=== PATIENT | female | born 1960 | race Caucasian/White ===

== ENCOUNTER → 2017-12-26 | Outpatient (CLI) | payer BC, OTHER ==
--- NOTE | 2017-12-26 13:13 | DIAGNOSTIC IMAGING REPORT ---
L KNEE 4 OR MORE HISTORY: 57 years-old Female LEFT KNEE PAIN chronic left knee pain without reported trauma COMPARISON: Knee radiographs 03/17/2014 TECHNIQUE: Standing AP view of the bilateral knees with sunrise, AP axial and crosstable lateral views of the left knee FINDINGS: Mild lateral and mild to moderate medial compartment osteoarthritis of the right knee. There is mild to moderate lateral and moderate patellofemoral compartment with moderate medial compartment osteoarthritis about the left knee. Prominent spurring is seen of the tibial spines. No acute fracture or subluxation identified. Trace knee joint effusion is noted without opaque foreign body. Degenerative changes have progressed from 03/17/2014. IMPRESSION: 1. No acute fracture or dislocation. 2. Progressively worsened tricompartmental degenerative changes of the bilateral knees. The above report was generated using voice recognition software. It may contain grammatical, syntax or spelling errors. Electronically signed by: Chetan Castro M.D. 12/26/2017 1:12 PM Dictated Date/Time: 12/26/2017 1:09 PM
== END | disposition home or self-care (01) ==
LOC: C.RDSM 17:25
PROVIDERS: ATTEND Physician Assistant
DX: M25.562 Pain in left knee (principal)

== ENCOUNTER → 2018-02-23 | Outpatient (CLI) | payer OTHER, BC ==
[~2018-02-23] MED LIST: ACET-1256 PO; ALBUAER INH; ASPI81TA28 PO; CHN/1 PO; DTR/5 PO; GABA-112 PO; GABA-113 PO; IBUP-1451 PO; METF-384 PO; METH-307 PO; METO25TA3 PO; PRLSR20 PO; SYMIN160 INH
--- NOTE | 2018-02-23 15:14 | DIAGNOSTIC IMAGING REPORT ---
MRI THE RIGHT SHOULDER NO CONTRAST CLINICAL HISTORY: Persistent right shoulder pain COMPARISON STUDY: No previous studies for comparison. FINDINGS: Imaging was performed in the sagittal, coronal, and axial planes. There are no areas of marrow edema to indicate occult fracture or bone bruise. The bicipital tendon appears intact. There is no subluxation. There are subchondral cysts within the humeral head measuring 1 cm. There are mild degenerative changes within the chromic clavicular joint. There is extensive supraspinatus tendinopathy with several partial-thickness intrasubstance tears. There is slight blunting of the anterior superior glenoid labrum, finding which is likely chronic IMPRESSION: 1. Extensive supraspinatus tendinopathy with several partial-thickness and intrasubstance tears. Electronically signed by: Errol Lovell M.D. 02/23/2018 3:12 PM Dictated Date/Time: 02/23/2018 3:07 PM
== END | disposition home or self-care (01) ==
LOC: C.MRI 14:01
PROVIDERS: ATTEND Family Medicine
DX: M25.511 Pain in right shoulder (principal); M75.91 Shoulder lesion, unspecified, right shoulder

== ENCOUNTER 2018-03-03 06:23 | Inpatient (IN) | payer BC, OTHER ==
[2018-02-18 10:48] VITALS: Ht 170.2 cm; Wt 127.7 kg
--- NOTE | 2018-02-18 11:49 | PAT Medication Instructions ---
Service Date Feb 18, 2018. Current Home Medication List Acetaminophen (Tylenol), 500 MG PO TID Albuterol Sulfate (Proventil Hfa), 1 DOSE INH UD PRN for PRN Aspirin (Aspirin Ec), 81 MG PO QAM Budesonide/Formoterol Fumarate (Symbicort 160/4.5 Inhaler ), 2 PUFFS INH BID Gabapentin (Neurontin), 100 MG PO BID Gabapentin (Neurontin), 600 MG PO HS Ibuprofen Tab (Motrin), 800 MG PO TID Metformin Hcl (Glucophage), 1,000 MG PO BID Methocarbamol (Robaxin), 750 MG PO TID Metoprolol Succ (Toprol Xl) (Toprol-Xl), 12.5 MG PO QAM Omeprazole (Prilosec), 20 MG PO UD Oxybutynin Chloride (Ditropan), 10 MG PO BID Sulfamethoxazole-Trimethoprim (Bactrim Ds 800MG/160MG), Unknown Dose PO BID Varenicline (Chantix), 1 DOSE PO DIRECTED Medication Instructions For Your Scheduled Surgery -Follow your surgeon's instructions for: Ibuprofen Tab (Motrin), 800 MG PO TID -Continue as directed until completed: Sulfamethoxazole-Trimethoprim (Bactrim Ds 800MG/160MG), Unknown Dose PO BID - Hold the following medications the morning of surgery: Metformin Hcl (Glucophage), 1,000 MG PO BID Methocarbamol (Robaxin), 750 MG PO TID Oxybutynin Chloride (Ditropan), 10 MG PO BID Varenicline (Chantix), 1 DOSE PO DIRECTED - Take the following medications the morning of surgery with a sip of water: Acetaminophen (Tylenol), 500 MG PO TID (if needed, can be taken up to four hours before surgery) Albuterol Sulfate (Proventil Hfa), 1 DOSE INH UD PRN for PRN (if needed, and bring it with you to the hospital) Aspirin (Aspirin Ec), 81 MG PO QAM Budesonide/Formoterol Fumarate (Symbicort 160/4.5 Inhaler ), 2 PUFFS INH BID Gabapentin (Neurontin), 100 MG PO BID Metoprolol Succ (Toprol Xl) (Toprol-Xl), 12.5 MG PO QAM Omeprazole (Prilosec), 20 MG PO UD - Take the following medications as scheduled the night before surgery: Acetaminophen (Tylenol), 500 MG PO TID Gabapentin (Neurontin), 600 MG PO HS Omeprazole (Prilosec), 20 MG PO UD Oxybutynin Chloride (Ditropan), 10 MG PO BID Varenicline (Chantix), 1 DOSE PO DIRECTED If you have any questions please call us at [phone] or [phone] or [phone]
--- NOTE | 2018-02-18 12:22 | DIAGNOSTIC IMAGING REPORT ---
TWO VIEW CHEST CLINICAL HISTORY: Preoperative examination. FINDINGS: PA and lateral chest radiographs are obtained. No prior studies are available for comparison at the time of dictation. The cardiomediastinal silhouette is unremarkable. There is elevation of left hemidiaphragm with associated left basilar atelectasis. The lungs and pleural spaces are otherwise clear. There is no pneumothorax. The skeletal structures are osteopenic. The bony thorax appears intact. IMPRESSION: No active disease in the chest. Electronically signed by: Clay Meneses M.D. 02/18/2018 12:21 PM Dictated Date/Time: 02/18/2018 12:20 PM
[2018-02-18 12:28] LABS: BASO % 0.6 %; BASO ABS # 0.05 K/uL (0-0.2); EOS % 4.7 %; EOS ABS # 0.43 K/uL (0-0.5); HEMOGLOBIN 14.5 g/dL (12.0-16.0); IG# 0.04 K/uL (0.00-0.02); LYMPH % 16.5 %; MEAN CELL VOLUME 92.5 fL (80-100); MEAN CORPUSCULAR HEMOGLOBIN 31.2 pg (25-34); MEAN CORPUSCULAR HGB CONC 33.7 g/dl (32-36); MEAN PLATELET VOLUME 9.6 fL (7.4-10.4); MONO ABS # 0.73 K/uL (0.11-0.59); NEUT % 69.8 %; NEUT ABS # 6.32 K/uL (1.4-6.5); PLATELET COUNT 318 K/uL (130-400); RED CELL DISTRIBUTION WIDTH CV 12.9 % (11.5-14.5); RED CELL DISTRIBUTION WIDTH SD 43.3 fL (36.4-46.3); WHITE BLOOD COUNT 9.07 K/uL (4.8-10.8)
[2018-02-18 12:36] LABS: ALBUMIN 3.5 gm/dl (3.4-5.0); CALCIUM 9.2 mg/dl (8.5-10.1); CREATININE 0.86 mg/dl (0.60-1.20); INR 0.9 (0.9-1.1); POTASSIUM 4.7 mmol/L (3.5-5.1)
[2018-02-18 12:39] LABS: TOTAL PROTEIN 6.8 gm/dl (6.4-8.2)
--- NOTE | 2018-02-18 15:06 | History and Physical ---
History & Physical Date of Service Feb 18, 2018. History & Physical CHIEF COMPLAINT: Left knee pain. HISTORY OF PRESENT ILLNESS: This is a 58-year-old female who presents to the clinic today for preoperative history and physical examination. The patient complains of persistent left knee pain that has been ongoing for the past 1+ year. There is affecting her daily life. She states that pain increases with weightbearing and ambulation more so in the morning. She states that she previously had arthroscopy in the same knee in 2013, which did help alleviate pain. She states she also had an injury at age 15 of the left knee, which required surgery at that time and feels that this may be the cause of her persistent left knee pain. PAST SURGICAL HISTORY: Tubal ligation, left knee arthroscopy and left foot surgery. PAST MEDICAL HISTORY: Hypertension, COPD, type 2 diabetes, obesity, sleep apnea with CPAP use, anxiety, gastroesophageal reflux disease. FAMILY HISTORY: Noncontributory. ALLERGIES: THE PATIENT HAS MEDICATION ALLERGIES TO ALBUTEROL AND MACRODANTIN. CURRENT MEDICATIONS: Aspirin 81 mg daily, Bactrim 1 tab twice daily, Chantix 1 mg oral tablet 1 tab twice daily, gabapentin 600 mg tablet at bedtime, gabapentin 100 mg oral capsule twice daily, ibuprofen 800 mg tablet 3 times daily, metformin 1000 mg tablet twice daily, methocarbamol 750 mg 4 times daily , metoprolol succinate ER 25 mg daily, Mucinex 1200 mg daily, oxybutynin 5 mg twice daily, ProAir HFA 90 mcg/INH inhalation aerosol 2 puffs 4 times daily as needed for wheezing, Symbicort 80 mcg/4.5 mcg/INH inhalation aerosol 1 puff twice daily and Tylenol 500 mg oral tablet every 6 hours as needed for pain. SOCIAL HISTORY: The patient states that she was a 1-1/2 pack per day smoker for 32 years. She quit in July of 2017. The patient denies alcohol or illicit drug use. PHYSICAL EXAMINATION: Skin: The patient's skin is normal in appearance. No open skin lesions or discharge. Eyes: Pupils are equal and reactive to light and accommodating. Extraocular movements are intact. Throat: Posterior oropharynx clear with absence of edema, erythema or exudate. Cardiovascular exam: The patient has a regular rate and rhythm, no murmurs or gallops appreciated. Lungs: Auscultation of lung garcía reveals clear breath sounds throughout, no wheezing, rales or rhonchi. Abdomen is obese, nondistended, nontender with normoactive bowel sounds. Extremities: Left knee, the patient experiences medial joint line tenderness when she is palpated in flexed position as audible crepitation with active passive range of motion. She has no varus or valgus laxity and a negative AP drawer sign, negative Vidhya test. The patient is able to extend to 60 degrees and flex to 118 degrees. Her left calf is soft and supple, nontender to palpation. She experiences no referred knee pain with dorsi or plantarflexion of the foot against resistance. Her left patella is nonmobile due to arthritic changes within the patellofemoral joint and she is neurovascularly intact in the left lower extremity. Neurological exam, cranial nerves 2 through 12 are intact. No motor or sensory deficit. Psychologic/general exam, patient is alert and oriented x3 with proper grooming and hygiene. DIAGNOSES: Left knee osteoarthritis. PROCEDURE: Left total knee arthroplasty. RADIOGRAPHIC IMAGING: Images of the left knee shows severe changes in the left knee joint with medial joint space narrowing, subchondral sclerosis, cysts and osteophytes. PLAN: The patient is scheduled to undergo this procedure with Dr. Viktor Dumont at the [facility] on 03/03/2018. Risks and complications of the surgery such as infection, bleeding, pain, scarring, nerve and blood vessel damage, weakness, wound problems, stiffness, incomplete relief of symptoms, heart attack, stroke, , heart rate or failure, loosening, wear, fracture, blood clots, embolism were explained to the patient on her visit with Dr. Dumont on January 08. The patient understood the risks of surgery and informed consent to perform the procedure was obtained. We will also obtain preoperative medical clearance from the patient's primary care provider along with preoperative CBC with differential, complete metabolic panel, PT, INR, PTT, blood type and screen, urinalysis, urine culture and sensitivity, EKG and a chest x-ray. The patient has her preoperative anesthesia clearance test today and states she will obtain the necessary testing at that time. The patient was advised that she will be provided with a prescription for pain medicine upon discharge from the hospital. She will also be given an order for physical therapy and occupational therapy. She states she will most likely go to an inpatient rehab facility where her daughter works, which is [facility] [place] and receive therapy for 2 weeks there before returning home and doing outpatient therapy from that time forward. The patient was advised that she will be placed on Lovenox for DVT prophylaxis. We will also use LISET stockings and SCDs to prevent blood clots and embolism. The patient was given an order today to obtain a walker from either [employer] [facility] or [facility], and to bring it with her on the day of surgery. She was instructed about the use of antibiotics after her total joint replacement for any type of dental cleaning or procedure. I provided her with some paperwork to obtain a handicap placard. I also instructed her about the lectures that are given at [facility] in regards to joint replacement surgery. The patient verbalized understanding of all information provided at today's visit, thanked us for the care that she has received and states that if she has questions or concerns that should arise prior to her surgical date, she will contact the clinic accordingly.
[2018-03-03] VITALS (9 sets, daily range): BP systolic 106–141; BP diastolic 71–92; PULSE 65–82; TEMP 36.5–36.9; O2SAT 94–97
[~2018-03-03] VITALS: Ht 170.2 cm; Wt 127.7 kg
[~2018-03-03 06:23] MED LIST changes: +CEFAZOLIN 3000MG IV PUSH 22.5 ML IV SCH; +CeleBREX 200 MG CAP PO SCH; +GENERAL ORDER PROBLEM SCH; +LACTATED RINGER'S 1000ML IV SCH; +ROPIVACAINE 5MG/ML 30 ML 150 MG, BUPIVACAINE/EPINEPHR 0.5% MPF 30 ML, KETOROLAC TROMETH... INFIL SCH
[2018-03-03] MEDS ORDERED: BUPIVACAINE 0.25% 30 ML VIAL ONE (06:35)
[2018-03-03] MEDS ORDERED: BUPIVACAINE 0.5 % 5 MG/1 ML PF 10ML VIAL ONE (06:35)
--- NOTE | 2018-03-03 06:42 | History & Physical Bridge Note ---
H&P Re-Evaluation Bridge Note: I have examined the patient, reviewed the History & Physical and in the interval since the performance of the History & Physical I have noted the following changes of clinical significance: No changes noted
[2018-03-03] MEDS ORDERED: MIDAZOLAM HCL 1 MG/ML 2ML VIAL ONE ×2 (07:56)
[2018-03-03] MEDS ORDERED: PROPOFOL IV EMULSION 10 MG/ML 20 ML VIAL IV ONE ×9 (08:02→12:10)
[2018-03-03] MEDS: TRANEXAMIC ACID INJ 1,000 MG x 2 Bags IV SCH ×4 (08:11→14:29)
[2018-03-03] MEDS ORDERED: POVIDONE-IODINE OP SOLN 30 ML BTL ONE (08:29)
[2018-03-03] MEDS ORDERED: ORTHO JOINT ANESTHETIC ONE (08:29)
[2018-03-03] MEDS ORDERED: PHENYLEPHRINE 100MCG/ML 5ML SYR IV PRN (08:45)
[2018-03-03] MEDS ORDERED: EpHEDrine SULFATE INJ 50 MG/ML AMP IV PRN (08:45)
[2018-03-03] MEDS ORDERED: HYDROmorphone INJ 2 MG/ML SYR/VIAL IV PRN (08:45)
[2018-03-03] MEDS ORDERED: ONDANSETRON INJ 2 MG/ML 2 ML VIAL IV PRN ×2 (08:45→12:45)
[2018-03-03] MEDS ORDERED: KETOROLAC TROMETHAMINE 30 MG/ML VIAL IV. PRN (08:45)
[2018-03-03] MEDS ORDERED: ATROPINE SULFATE 0.1 MG/ML 5ML SYR IV PRN (08:45)
[2018-03-03] MEDS ORDERED: FENTANYL CITRATE INJ 50 MCG/1 ML 2 ML VIAL ONE ×2 (09:17→12:06)
[2018-03-03] MEDS ORDERED: LIDOCAINE HCL 2% 2 ML VIAL (20MG/ML) ONE (09:39)
[2018-03-03] MEDS ORDERED: KETAMINE HCL INJ 50 MG/ML 10 ML VIAL ONE (10:05)
[2018-03-03] MEDS ORDERED: PHENYLEPHRINE HCL INJ 10 MG/ML VIAL ONE (11:46)
[2018-03-03] MEDS ORDERED: ONDANSETRON INJ 2 MG/ML 2 ML VIAL ONE (11:46)
--- NOTE | 2018-03-03 12:17 | [facility] Post Operative Brief Note ---
Immediate Operative Summary Operative Date Mar 03, 2018. Pre-Operative Diagnosis Left Knee Osteoarthritis Post-Operative Diagnosis Left Knee Osteoarthritis Procedure(s) Performed Left Total Knee Arthroplasty Surgeon General Office Assistant Surgeon(s) Babar Bowen MD. KALYANI Henson Estimated Blood Loss 100ML Findings Consistent with Post-Op Diagnosis Fluids (cc crystalloids) 3000 Specimens A. Left knee bone and tissue. Drains None Anesthesia Type MAC Spinal Regional Complication(s) none Disposition Disposition: Recovery Room / PACU (Stable)
--- NOTE | 2018-03-03 12:19 | [facility] Operative Report ---
Operative Report Operative Date Mar 03, 2018. Pre-Operative Diagnosis Left Knee Osteoarthritis Post-Operative Diagnosis Left Knee Osteoarthritis Procedure(s) Performed Left Total Knee Arthroplasty Surgeon Analysis Analyst Surgeon(s) Babar Bowen MD. KALYANI Henson Estimated Blood Loss 100ML Findings Examined Under Anesthesia: ROM -- There was 5 degrees to 130 degrees of flexion Ligamentous examination -- revealed stable Vidhya, posterior drawer, varus and valgus stress at 5 and 30 degrees. [place]bridge Type IV changes of patellofemoral joint and medial compartment. There was type II-III changes in the lateral compartment. Significant scar tissue about the patellar tendon and patella. ROM after completing the procedure was 0-130. Fluids 3000 Specimens A. Left knee bone and tissue. Drains None Anesthesia Type MAC Spinal Regional Complication(s) none Disposition Recovery Room / PACU (Stable) Indications This is a 58-year-old male who has clinical and radiographic findings consistent with osteoarthritis of the a left knee and prior extensor mechanism realignment surgery. I recommended that a left total knee replacement be performed. The patient understands the risks of surgery, which include but not limited to: bleeding, infection, re-operation, damage to nerves and arteries, continued knee pain, knee stiffness, DVT, and . The patient understands all of these instructions and explanations, all of his questions have been satisfactorily addressed and the patient has elected to proceed. Informed consent was signed. Description of Procedure IMPLANTS: 1. Femur: Triathlon #5 Left PS. 2. Tibia: Triathlon #4 Raymond with 12 x 100 mm stem. 3. Insert: Triathlon #4 x 11mm PS X3 poly. 4. Patella: Triathlon A35 x 10 mm X3 poly. Procedure: The patient was taken to the Operating Room and placed in the supine position after spinal and adductor canal nerve block was administered. My initials and a multidisciplinary time-out were used to identify the left leg as the correct operative limb. A tourniquet was placed high in the thigh. Prior to the incision, 3 grams of intravenous Ancef were given. The left leg was then prepped and draped in a standard sterile fashion. An Esmarch was used to exsanguinate the leg and the tourniquet was inflated to 250 mmHg. The planned 25 cm incision, that incorporated her previous lateral incision was created exposing the extensor mechanism. The medial parapatellar arthrotomy was made and the patella was everted. The patella was addressed first. It was prepared by reaming from 22 mm down to 12 mm. A rongeur and rasp were used to remove any osteophytes and to smooth the surface. An A35 button was found to fit best. The peg holes were made in the standard fashion. The femur was addressed next and the guide audi was placed intramedullary. The initial cutting block was placed with 5 degrees of valgus and removing 10 mm for the anterior cut. The cut was made and the 4-in-1 cutting block for a size 5 femur was placed. These cuts and the cuts to place the box were made in the standard fashion. Our attention was then drawn to the tibia cut with the external cutting guide, taking 9mm from the lateral high side. It was initially difficult to get the spacer between the tibia and femur and an additional 2 mm were removed off the tibia. There was sufficient extension and flexion gap to fit a 11 mm spacer. A #4 Tibial baseplate fit well. A trial with a 11 mm spacer showed excellent stability in both flexion and extension, with good ligament balance. Range of motion of 0-130 degrees. The tibial baseplate was pinned and the final preparation for the keel and stem was made. A stem was used due to her large body habitus and previous tibial tubercle osteotomy. All the trial components were tested with good stability and thumbs free tracking of the patella. All components were removed. The tourniquet was deflated. Hemostasis was obtained. 90 ml of total knee cocktail were injected into the soft tissues and periosteum. A bone plug was placed in the femur and covered with bone wax. After a 15 minute break, the limb was exsanguinated again and the tourniquet was re-inflated. All surfaces were copiously irrigated prior to placement of the components. The femoral component and Tibial baseplate were placed with an 11 mm trial placed. The patellar button was placed using the initial batch of Simplex cement. Again with the 11 mm trial poly the range of motion and stability were unchanged. Once the cement had cured, the 11 mm X3 poly was placed. The extensor mechanism was closed with 1-0 and 0 Vicryl with the knee bent approximately 60 degrees in a standard fashion. The deep fascia was closed with 0 Vicryl. The subcutaneous layer was closed with 3-0 Vicryl. The skin was closed with jose. The limb was cleaned and dried. Xeroform was placed over top followed by 4x4's, ABDs, sterile Webril, and a foot to thigh Stiven bandage. The patient was then transferred to the Recovery Room in stable condition. The sponge and needle counts were correct. POST-OP INSTRUCTIONS: The patient will be WBAT. The patient will be admitted to the hospital. The patient will use the knee immobilizer when ambulating and standing until good quad control is achieved. Labs will be obtained during her stay. DVT prophylaxis will included Lovenox for 3 weeks then switching to aspirin for 3 more weeks, TEDs, and mechanical foot pumps. I attest to the content of the Intraoperative Record and any orders documented therein. Any exceptions are noted below.
[2018-03-03] MEDS ORDERED: METOCLOPRAMIDE HCL INJ 5 MG/ML 2 ML VIAL IV PRN (12:45)
[2018-03-03] MEDS ORDERED: ALUMINUM/MAGNESIUM/SIMETH (MAALOX MAX) 30 ML UDC PO PRN (12:45)
[2018-03-03] MEDS ORDERED: CEFAZOLIN IV 2,000 MG in DEXTROSE 5% 50ML 50 ML IV SCH (12:45)
[2018-03-03] MEDS ORDERED: MAGNESIUM HYDROXIDE SUSP 30 ML UDC PO PRN (12:45)
[2018-03-03] MEDS ORDERED: DiphenhydrAMINE HCL 50 MG/ML VIAL IV PRN (12:45)
[2018-03-03] MEDS ORDERED: MoRPHine SULFATE 2 MG/ML CARP IV PRN (12:45)
[2018-03-03] MEDS ORDERED: BISACODYL 10 MG SUPP PR PRN (12:45)
[2018-03-03] MEDS ORDERED: ALBUTEROL HFA 8 GM INHALER INH PRN (13:00)
--- NOTE | 2018-03-03 13:13 | DIAGNOSTIC IMAGING REPORT ---
L KNEE 1 OR 2 VIEWS ROUTINE CLINICAL HISTORY: Postoperative evaluation. COMPARISON: Knee radiographs December 26, 2017. FINDINGS: Alignment of the total left knee arthroplasty is anatomic. There is no periprosthetic fracture or unexpected radiopaque foreign body. Skin jose are noted. IMPRESSION: Expected findings following total left knee arthroplasty. Electronically signed by: Jeison Fritz M.D. 03/03/2018 1:12 PM Dictated Date/Time: 03/03/2018 1:11 PM
[2018-03-03] MEDS ORDERED: MoRPHine SULFATE 4 MG/ML 1 ML CARP\\VIAL IV PRN (14:00)
--- NOTE | 2018-03-03 14:06 | Anesthesiology Progress Note ---
Anesthesia Post Op Note Date & Time Mar 03, 2018 at 14:06 Vital Signs Pain Intensity: 3 Vital Signs Past 12 Hours Date Time Temp Pulse Resp B/P (MAP) Pulse Ox O2 Delivery O2 Flow Rate FiO2 03/03/18 13:22 72 20 03/03/18 13:22 73 20 93 03/03/18 13:21 112/79 03/03/18 13:17 71 18 03/03/18 13:17 71 18 93 03/03/18 13:16 117/72 03/03/18 13:12 75 22 03/03/18 13:12 75 22 93 03/03/18 13:11 111/80 03/03/18 13:07 75 20 93 03/03/18 13:07 76 20 03/03/18 13:06 116/76 03/03/18 13:02 80 27 92 03/03/18 13:02 80 27 03/03/18 13:01 112/78 03/03/18 12:57 76 29 03/03/18 12:57 77 29 92 03/03/18 12:56 36.6 03/03/18 12:55 72 26 03/03/18 12:55 72 26 92 03/03/18 12:51 103/66 03/03/18 12:50 78 23 03/03/18 12:50 79 23 92 03/03/18 12:46 98/67 03/03/18 12:45 71 22 92 03/03/18 12:45 71 22 03/03/18 12:41 102/56 03/03/18 12:40 76 21 03/03/18 12:40 77 21 97 03/03/18 12:36 93/53 03/03/18 12:35 76 18 03/03/18 12:35 76 18 97 03/03/18 12:31 97/51 03/03/18 12:30 78 23 99/59 95 03/03/18 12:30 78 23 03/03/18 12:25 36.5 77 16 100/89 96 Nasal Cannula 3 03/03/18 06:47 36.7 77 18 141/92 96 Room Air Notes Mental Status: alert / awake / arousable, participated in evaluation Pt Amnestic to Procedure: Yes Nausea / Vomiting: adequately controlled Pain: adequately controlled Airway Patency, RR, SpO2: stable & adequate BP & HR: stable & adequate Hydration State: stable & adequate Anesthetic Complications: no major complications apparent
[2018-03-03] MEDS: OXYCODONE HCL IR 5 MG TAB (IMMEDIATE RELEASE) PO PRN ×3 (15:08→23:42)
[2018-03-03] MEDS: GABAPENTIN 100 MG CAP PO SCH (15:12)
[2018-03-03] MEDS: METHOCARBAMOL 750 MG TAB PO SCH ×2 (15:12→21:19)
[2018-03-03] MEDS ORDERED: PNEUMOCOCCAL POLYSACCHARIDES 25 MCG/0.5 ML VIAL/SYR IM. ONE (15:15)
[2018-03-03] MEDS ORDERED: PNEUMOCOCCAL ADMINISTRATION CHARGE ONE (15:15)
--- NOTE | 2018-03-03 17:26 | Orthopedic Progress Note ---
Orthopedic Progress Note Date of Service Mar 03, 2018. Subjective Post OP Day: POD # 0 Additional Notes: Feeling congested. Able to wiggle toes, still not able to extend foot. Objective calves soft nontender, dressing C/D/I, A&O x3 LLE: Sensation to LT is intact. able to wiggle toes up and down. Unable to move at the ankle. Date Time Temp Pulse Resp B/P (MAP) Pulse Ox O2 Delivery O2 Flow Rate FiO2 03/03/18 17:09 36.6 65 18 134/85 (101) 97 Nasal Cannula 2.0 03/03/18 15:32 36.7 67 16 115/79 (91) 94 Nasal Cannula 2.0 03/03/18 14:30 36.5 03/03/18 14:30 73 16 123/81 (95) 03/03/18 14:28 70 16 135/89 (104) 03/03/18 14:00 70 16 135/89 (104) 03/03/18 13:30 Nasal Cannula 4.0 03/03/18 13:30 82 16 130/82 (98) 94 Nasal Cannula 4.0 03/03/18 13:30 Nasal Cannula 4.0 03/03/18 13:22 72 20 03/03/18 13:22 73 20 93 03/03/18 13:21 112/79 03/03/18 13:17 71 18 03/03/18 13:17 71 18 93 03/03/18 13:16 117/72 03/03/18 13:12 75 22 03/03/18 13:12 75 22 93 03/03/18 13:11 111/80 03/03/18 13:07 75 20 93 03/03/18 13:07 76 20 03/03/18 13:06 116/76 03/03/18 13:02 80 27 92 03/03/18 13:02 80 27 03/03/18 13:01 112/78 03/03/18 12:57 76 29 03/03/18 12:57 77 29 92 03/03/18 12:56 36.6 03/03/18 12:55 72 26 03/03/18 12:55 72 26 92 03/03/18 12:51 103/66 03/03/18 12:50 78 23 03/03/18 12:50 79 23 92 03/03/18 12:46 98/67 03/03/18 12:45 71 22 92 03/03/18 12:45 71 22 03/03/18 12:41 102/56 03/03/18 12:40 76 21 03/03/18 12:40 77 21 97 03/03/18 12:36 93/53 03/03/18 12:35 76 18 03/03/18 12:35 76 18 97 03/03/18 12:31 97/51 03/03/18 12:30 78 23 99/59 95 03/03/18 12:30 78 23 03/03/18 12:25 36.5 77 16 100/89 96 Nasal Cannula 3 03/03/18 06:47 36.7 77 18 141/92 96 Room Air Additional Notes: RADIOGRAPHS: Show evidence of recent L TKA, hardware in good position. Assessment & Plan Assessment: POD # 0, s/p L TKA Plan: Explained it appears that the block has not completely worn off. Will continue to monitor. Continue pain control. Resume Diet. PT/OT. WBAT with walker and Immobilizer. Immobilizer until good quad control. Check labs in AM. Change dressing 03/05/18. D/C [place] 03/04/18 in AM. DVT Prophylaxis: TEDs & foot pumps, Lovenox 30 mg subq BID x 3 weeks, start in AM. Then ASA 325 mg PO BID for 3 weeks, then return to patient's regular 81 mg dose. Consult Medicine for medical management. Congestion, ok to use Mucinex. D/C Planning. Discharge Planning DVT Prophylaxis: TEDs
[2018-03-03] MEDS ORDERED: NURSING VERBAL MED ORDER ONE (18:00)
[2018-03-03] MEDS ORDERED: GUAIFENESIN 600 MG TABCR PO PRN (18:00)
[2018-03-03] MEDS: CEFAZOLIN IV 2,000 MG in SYRINGE 0 ML IV SCH (18:38)
[2018-03-03] MEDS: KETOROLAC TROMETHAMINE 30 MG/ML VIAL IV. SCH ×2 (18:39→23:42)
[2018-03-03] MEDS: FERROUS GLUCONATE 324 MG TAB PO SCH (18:40)
[2018-03-03] MEDS: METFORMIN HCL 500 MG TAB PO SCH (18:40)
[2018-03-03] MEDS: ASCORBIC ACID 500 MG TAB PO SCH (21:00)
--- NOTE | 2018-03-03 21:13 | Medical Consult ---
Consultation Date of Consultation: Mar 03, 2018. Attending Physician: Viktor Dumont MD History of Present Illness 58-year-old female with past medical history of COPD, chronic respiratory failure only on oxygen at night R and exertion, also patient uses CPAP machine at home. Also patient has diabetes mellitus on oral hypoglycemic and quit smoking recently. Patient has severe osteoarthritis and failed outpatient conservative management. She presented to the hospital for an elective left total knee replacement. Procedure went uneventful and we were consulted for medical management. Social History Smoking Status: Former Smoker Marital Status: Occupation Status: employed Allergies Coded Allergies: Nitrofurantoin (Verified Allergy, Mild, trouble breathing, 03/03/18) Albuterol (Unverified Adverse Reaction, Unknown, palpitations and tachycardia, 03/03/18) Codeine (Verified Adverse Reaction, Unknown, N/V, 03/03/18) Current Inpatient Medications Current Inpatient Medications Medications (Trade) Dose Ordered Sig/Nils Route Start Time Stop Time Status Last Admin Dose Admin Lactated Ringer's 1,000 ml @ 60 mls/hr [id number] IV 03/03/18 06:00 03/03/18 22:39 03/03/18 07:23 60 MLS/HR Sodium Chloride 1,000 ml @ 100 mls/hr Q10H IV 03/03/18 15:00 03/04/18 14:59 Ketorolac Tromethamine (Toradol Inj) 30 mg Q6 IV. 03/03/18 18:00 03/04/18 17:59 03/03/18 18:39 30 MG Celecoxib (CeleBREX CAP) 200 mg BID PO 03/04/18 21:00 04/03/18 20:59 Oxycodone HCl (Roxicodone Immediate Rel Tab) 1 TABLET FOR PAIN RATING... Q4H PRN PO 03/03/18 12:45 03/17/18 12:44 03/03/18 19:58 10 MG Morphine Sulfate (MoRPHine SULFATE INJ) 2 mg Q1HWA PRN IV 03/03/18 12:45 03/17/18 12:44 Acetaminophen (Tylenol Tab) 1,000 mg Q8 PO 03/03/18 22:00 04/02/18 21:59 Magnesium Hydroxide (Milk Of Magnesia Susp) 30 ml Q6H PRN PO 03/03/18 12:45 04/02/18 12:44 Bisacodyl (Dulcolax Supp) 10 mg DAILY PRN FL 03/03/18 12:45 04/02/18 12:44 Senna (Senokot Tab) 17.2 mg HS PO 03/03/18 21:00 04/02/18 20:59 Docusate Sodium (coLACE CAP) 100 mg BID PO 03/03/18 21:00 04/02/18 20:59 Diphenhydramine HCl (Benadryl Cap) 25 mg Q8H PRN PO 03/03/18 12:45 04/02/18 12:44 Diphenhydramine HCl (Benadryl Inj) 25 mg Q8H PRN IV 03/03/18 12:45 04/02/18 12:44 Al Hydrox/Mg Hydrox/Simethicone (Maalox Max Susp) 15 ml Q4H PRN PO 03/03/18 12:45 04/02/18 12:44 Multivitamins (Multivitamin Tab) 1 tab QAM PO 03/04/18 09:00 04/03/18 08:59 Ondansetron HCl (Zofran Inj) 4 mg Q6H PRN IV 03/03/18 12:45 04/02/18 12:44 Metoclopramide HCl (Reglan Inj) 10 mg Q6H PRN IV 03/03/18 12:45 04/02/18 12:44 Ferrous Gluconate (Ferrous Gluconate Tab) 324 mg BIDM PO 03/03/18 17:45 04/02/18 17:44 03/03/18 18:40 324 MG Pantoprazole Sodium (Protonix Tab) 40 mg QAM PO 03/04/18 09:00 03/08/18 08:59 Enoxaparin Sodium (Lovenox Inj) 30 mg Q12H SQ 03/04/18 08:00 03/24/18 12:32 Ascorbic Acid (Vitamin C Tab) 250 mg BID PO 03/03/18 21:00 03/17/18 20:59 Albuterol (Ventolin Hfa Inhaler) 2 puffs Q4H PRN INH 03/03/18 13:00 04/02/18 12:59 Budesonide/ Formoterol Fumarate (Symbicort 160/ 4.5 Inh) 2 puffs BID INH 03/03/18 21:00 04/02/18 20:59 Gabapentin (Neurontin Cap) 100 mg BID@0900,1400 PO 03/03/18 14:00 04/02/18 13:59 03/03/18 15:12 100 MG Gabapentin (Neurontin Tab) 600 mg HS PO 03/03/18 21:00 04/02/18 20:59 Metformin HCl (Glucophage Tab) 1,000 mg BIDM PO 03/03/18 17:45 04/02/18 17:44 03/03/18 18:40 1,000 MG Methocarbamol (Robaxin Tab) 750 mg TID PO 03/03/18 14:00 04/02/18 13:59 03/03/18 15:12 750 MG Metoprolol Succinate (Toprol Xl Tab) 12.5 mg QAM PO 03/04/18 09:00 04/03/18 08:59 Oxybutynin Chloride (Ditropan Tab) 10 mg BID PO 03/03/18 21:00 04/02/18 20:59 Varenicline (Chantix) 1 mg BID PO 03/03/18 21:00 04/02/18 20:59 Morphine Sulfate (MoRPHine SULFATE INJ) 4 mg Q1HWA PRN IV 03/03/18 14:00 03/17/18 13:59 Cefazolin Sodium 2000 mg/Syringe 15 ml @ 3.75 mls/ min Q8H IV 03/03/18 18:00 03/04/18 02:03 03/03/18 18:38 3.75 MLS/MIN Guaifenesin (Mucinex Contr Rel Tab) 1,200 mg BID PRN PO 03/03/18 18:00 04/02/18 17:59 Review of Systems Review of system Constitutional: No fever / no chills / no sweats / no weakness / no fatigue Eyes: no blurring of vision / no eye pain / no discharge / no redness ENT: no hearing loss / no epistaxis /no swallowing problems Respiratory: no cough / no wheezing / no SOB / no hemoptysis Cardiovascular: no Chest pain / no lower extremity edema / no palpitation Abdomen: no pain / no nausea / no vomiting / no constipation Musculoskeletal: no joint pain / no muscle pain / no joint swelling Genitourinary: no dysuria / no incontinence / no urinary retention Neurologic: no focal weakness / no numbness/tingling / no ataxia Psychiatric: no depression symptoms / no anxiety / no insomnia Endocrine: no excessive thirst / no excessive urination Hematologic: no abnormal bleeding / no bruising / no LN swelling Skin: No rash / no pallor Physical Exam Date Time Temp Pulse Resp B/P (MAP) Pulse Ox O2 Delivery O2 Flow Rate FiO2 03/03/18 19:20 36.9 69 16 140/86 (104) 96 Nasal Cannula 2.0 03/03/18 17:09 36.6 65 18 134/85 (101) 97 Nasal Cannula 2.0 03/03/18 15:32 36.7 67 16 115/79 (91) 94 Nasal Cannula 2.0 03/03/18 15:04 Nasal Cannula 2.0 03/03/18 14:30 36.5 03/03/18 14:30 73 16 123/81 (95) 03/03/18 14:28 70 16 135/89 (104) 03/03/18 14:00 70 16 135/89 (104) 03/03/18 13:30 Nasal Cannula 4.0 03/03/18 13:30 82 16 130/82 (98) 94 Nasal Cannula 4.0 03/03/18 13:30 Nasal Cannula 4.0 03/03/18 13:22 72 20 03/03/18 13:22 73 20 93 03/03/18 13:21 112/79 03/03/18 13:17 71 18 03/03/18 13:17 71 18 93 03/03/18 13:16 117/72 03/03/18 13:12 75 22 03/03/18 13:12 75 22 93 03/03/18 13:11 111/80 03/03/18 13:07 75 20 93 03/03/18 13:07 76 20 03/03/18 13:06 116/76 03/03/18 13:02 80 27 92 03/03/18 13:02 80 27 03/03/18 13:01 112/78 03/03/18 12:57 76 29 03/03/18 12:57 77 29 92 03/03/18 12:56 36.6 03/03/18 12:55 72 26 03/03/18 12:55 72 26 92 03/03/18 12:51 103/66 03/03/18 12:50 78 23 03/03/18 12:50 79 23 92 03/03/18 12:46 98/67 03/03/18 12:45 71 22 92 03/03/18 12:45 71 22 03/03/18 12:41 102/56 03/03/18 12:40 76 21 03/03/18 12:40 77 21 97 03/03/18 12:36 93/53 03/03/18 12:35 76 18 03/03/18 12:35 76 18 97 03/03/18 12:31 97/51 03/03/18 12:30 78 23 99/59 95 03/03/18 12:30 78 23 03/03/18 12:25 36.5 77 16 100/89 96 Nasal Cannula 3 03/03/18 06:47 36.7 77 18 141/92 96 Room Air Physical examination General patient appears to be comfortable, not in acute distress HEENT: Atraumatic , normocephalic /no jaundice /no pallor /anicteric /no dry mucous membrane /normal external ear inspection Neck: Supple /no swelling /central trach Heart: S1/S2 normal/regular rate and rhythm/no gallop /no rub /no murmur Lungs: Clear to auscultation bilaterally/normal chest with expansion/no rhonchi/ no rales/no wheezing/no use of accessory muscles of respiration Abdomen: Soft/nontender/no guarding/no rebound/no organomegaly/no pulsatile mass Musculoskeletal: No swelling/no edema/no tenderness/normal range of motion Neuro exam: Awake alert oriented 3/cranial nerves II through XII appear to be intact/sensation intact/moves all extremities/no abnormal movements Psychiatric evaluation: No depressed mood/normal affect Skin: No rash on exposed skin area/no erythema Extremity: Normal pulse/no pitting edema/no clubbing or cyanosis Endocrine/lymphatic: No obvious lymphadenopathy /no lymphedema Laboratory Results Last 24 Hours Test 03/03/18 06:54 03/03/18 12:39 03/03/18 17:11 Bedside Glucose 126 mg/dl 122 mg/dl 149 mg/dl Assessment & Plan 58-year-old female with past medical history of COPD, chronic respiratory failure only on oxygen at night R and exertion, also patient uses CPAP machine at home. Also patient has diabetes mellitus on oral hypoglycemic and quit smoking recently. Patient has severe osteoarthritis and failed outpatient conservative management. Presented to the hospital for an elective left total knee replacement Assessment: severe osteoarthritis that failed outpatient conservative measures. Patient presented to the hospital for an elective orthopedic procedure COPD without exacerbation Chronic respiratory failure on O2 supplement on exertion and during sleep Obstructive sleep apnea on CPAP machine Diabetes mellitus on oral hypoglycemic Plan Status post orthopedic procedure, went uneventful full Patient tolerated procedure well with minimal blood loss Appears to be stable Continue outpatient medications Follow-up labs Ensure adequate oral/parenteral intake Pain management Physical therapy initiation as per primary orthopedic team DVT prophylaxis as per the choice of primary orthopedic team Sliding scale insulin Continue CPAP machine Oxygen supplement as needed to keep oxygen saturation between 91-93%
[2018-03-03] MEDS ORDERED: DEXTROSE 50% 50 ML SYR IV PRN (21:15)
[2018-03-03] MEDS ORDERED: GLUCOSE 40% GEL 15 GM TUBE PO PRN (21:15)
[2018-03-03] MEDS ORDERED: GLUCAGON FOR INJ 1 MG VIAL SQ PRN (21:15)
[2018-03-03] MEDS ORDERED: GLUCOSE 10 TABS/TUBE PO PRN (21:15)
[2018-03-03] MEDS: BUDESONIDE/FORMOTEROL FUMARATE 160/4.5 60 PUFFS/INHALER INH SCH (21:16)
[2018-03-03] MEDS: SODIUM CHLORIDE 0.9% 1000ML 1,000 ML IV SCH (21:16)
[2018-03-03] MEDS: VARENICLINE (CHANTIX) 1 MG TAB PO SCH (21:18)
[2018-03-03] MEDS: GABAPENTIN 600 MG TAB PO SCH (21:18)
[2018-03-03] MEDS: DOCUSATE SODIUM 100 MG CAP PO SCH (21:18)
[2018-03-03] MEDS: OXYBUTYNIN CHLORIDE 5 MG TAB PO SCH (21:19)
[2018-03-03] MEDS: SENNA 8.6 MG TAB PO SCH (21:20)
[2018-03-03] MEDS: ACETAMINOPHEN 500 MG TAB PO SCH (21:26)
[2018-03-04] MEDS: CEFAZOLIN IV 2,000 MG in SYRINGE 0 ML IV SCH (02:06)
[2018-03-04 03:32] VITALS: BP 115/71; PULSE 68; TEMP 36.4; O2SAT 93
[2018-03-04 06:15] LABS: HEMOGLOBIN 11.7 g/dL (12.0-16.0); MEAN CELL VOLUME 93.3 fL (80-100); MEAN CORPUSCULAR HEMOGLOBIN 30.3 pg (25-34); MEAN CORPUSCULAR HGB CONC 32.5 g/dl (32-36); MEAN PLATELET VOLUME 9.3 fL (7.4-10.4); PLATELET COUNT 263 K/uL (130-400); RED CELL DISTRIBUTION WIDTH CV 12.7 % (11.5-14.5); RED CELL DISTRIBUTION WIDTH SD 43.1 fL (36.4-46.3); WHITE BLOOD COUNT 12.51 K/uL (4.8-10.8)
[2018-03-04] MEDS: SODIUM CHLORIDE 0.9% 1000ML 1,000 ML IV SCH ×2 (06:15→11:00)
[2018-03-04] MEDS: KETOROLAC TROMETHAMINE 30 MG/ML VIAL IV. SCH ×2 (06:15→12:16)
[2018-03-04] MEDS: ACETAMINOPHEN 500 MG TAB PO SCH ×3 (06:15→22:43)
[2018-03-04] MEDS: OXYCODONE HCL IR 5 MG TAB (IMMEDIATE RELEASE) PO PRN ×4 (06:16→20:21)
[2018-03-04 06:40] LABS: CALCIUM 8.1 mg/dl (8.5-10.1); CREATININE 0.85 mg/dl (0.60-1.20); POTASSIUM 4.4 mmol/L (3.5-5.1)
[2018-03-04 07:41] VITALS: BP 119/80; PULSE 54; TEMP 36.9; O2SAT 97
[2018-03-04] MEDS: FERROUS GLUCONATE 324 MG TAB PO SCH ×2 (08:44→17:48)
[2018-03-04] MEDS: OXYBUTYNIN CHLORIDE 5 MG TAB PO SCH ×2 (08:45→20:24)
[2018-03-04] MEDS: VARENICLINE (CHANTIX) 1 MG TAB PO SCH ×2 (08:45→20:23)
[2018-03-04] MEDS: DOCUSATE SODIUM 100 MG CAP PO SCH ×2 (08:45→20:23)
[2018-03-04] MEDS: METFORMIN HCL 500 MG TAB PO SCH ×2 (08:45→17:50)
[2018-03-04] MEDS: MULTIVITAMIN TAB PO SCH (08:46)
[2018-03-04] MEDS: GUAIFENESIN 600 MG TABCR PO SCH ×2 (08:46→20:24)
[2018-03-04] MEDS: GABAPENTIN 100 MG CAP PO SCH ×2 (08:47→13:55)
[2018-03-04] MEDS: METHOCARBAMOL 750 MG TAB PO SCH ×3 (08:47→20:25)
[2018-03-04] MEDS: PANTOprazole SOD 40 MG TAB PO SCH (08:47)
[2018-03-04] MEDS: ASCORBIC ACID 500 MG TAB PO SCH ×2 (08:48→20:26)
[2018-03-04] MEDS: METOPROLOL SUCC 25MG EXT REL TAB PO SCH (08:48)
[2018-03-04] MEDS: BUDESONIDE/FORMOTEROL FUMARATE 160/4.5 60 PUFFS/INHALER INH SCH ×2 (08:49→20:23)
[2018-03-04] MEDS: ENOXAPARIN 30 MG/0.3 ML SYR SQ SCH ×2 (08:52→20:22)
[2018-03-04] MEDS: INSULIN ASPART 100 UNITS/ML 3 ML PEN SC SCH ×4 (08:55→21:00)
--- NOTE | 2018-03-04 09:47 | Orthopedic Progress Note ---
Orthopedic Progress Note Date of Service Mar 04, 2018. Subjective Post OP Day: 1 Reports: feeling well, pain controlled w PO medications, Denies: chest pain, nausea / vomiting, light headedness, calf pain Additional Notes: Patient states mucinex helping with congestion. Using O2 when needed however feels "air is dry". She is requesting humidified O2. Continues to have left foot weakness. Asked if Dr Dumont could review MRI of right shoulder that was ordered by her Work Comp doctor on Friday. Objective calves soft nontender, N/V intact, capillary refill less than 2 sec., dressing C /D/I, A&O x3 left foot 4th and 5th toe with altered sensation--chronic left EHL/TA weak to MMT. New since surgery. Date Time Temp Pulse Resp B/P (MAP) Pulse Ox O2 Delivery O2 Flow Rate FiO2 03/04/18 07:41 36.9 54 18 119/80 (93) 97 Room Air 03/04/18 07:20 Nasal Cannula 2.0 03/04/18 03:32 36.4 68 16 115/71 (86) 93 CPAP 03/03/18 23:49 CPAP 2.0 03/03/18 22:58 36.7 69 16 106/71 (83) 96 Nasal Cannula 2.0 03/03/18 19:20 36.9 69 16 140/86 (104) 96 Nasal Cannula 2.0 03/03/18 17:09 36.6 65 18 134/85 (101) 97 Nasal Cannula 2.0 03/03/18 15:32 36.7 67 16 115/79 (91) 94 Nasal Cannula 2.0 03/03/18 15:04 Nasal Cannula 2.0 03/03/18 14:30 36.5 03/03/18 14:30 73 16 123/81 (95) 03/03/18 14:28 70 16 135/89 (104) 03/03/18 14:00 70 16 135/89 (104) 03/03/18 13:30 Nasal Cannula 4.0 03/03/18 13:30 82 16 130/82 (98) 94 Nasal Cannula 4.0 03/03/18 13:30 Nasal Cannula 4.0 03/03/18 13:22 72 20 03/03/18 13:22 73 20 93 03/03/18 13:21 112/79 03/03/18 13:17 71 18 03/03/18 13:17 71 18 93 03/03/18 13:16 117/72 03/03/18 13:12 75 22 03/03/18 13:12 75 22 93 03/03/18 13:11 111/80 03/03/18 13:07 75 20 93 03/03/18 13:07 76 20 03/03/18 13:06 116/76 03/03/18 13:02 80 27 92 03/03/18 13:02 80 27 03/03/18 13:01 112/78 03/03/18 12:57 76 29 03/03/18 12:57 77 29 92 03/03/18 12:56 36.6 03/03/18 12:55 72 26 03/03/18 12:55 72 26 92 03/03/18 12:51 103/66 03/03/18 12:50 78 23 03/03/18 12:50 79 23 92 03/03/18 12:46 98/67 03/03/18 12:45 71 22 92 03/03/18 12:45 71 22 03/03/18 12:41 102/56 03/03/18 12:40 76 21 03/03/18 12:40 77 21 97 03/03/18 12:36 93/53 03/03/18 12:35 76 18 03/03/18 12:35 76 18 97 03/03/18 12:31 97/51 03/03/18 12:30 78 23 99/59 95 03/03/18 12:30 78 23 03/03/18 12:25 36.5 77 16 100/89 96 Nasal Cannula 3 Laboratory Results 24 Hours: Test 03/04/18 05:46 Hematocrit 36.0 % Hemoglobin 11.7 g/dL Assessment & Plan Assessment: POD # 1, s/p L TKA Plan: Continue to monitor left foot weakness. Continue pain control. Tolerating diet. PT/OT. WBAT with walker and Immobilizer. Immobilizer until good quad control. Check labs in AM. Change dressing 03/05/18. Skyler Albert. DVT Prophylaxis: TEDs & foot pumps, Lovenox 30 mg subq BID x 3 weeks, started today. Then ASA 325 mg PO BID for 3 weeks, then return to patient's regular 81 mg dose. Appreciate medical consult. Humidified O2 ordered. Will discuss MRI of r shoulder findings with Dr Dumont. Patient requesting inpatient rehab at [facility]. Title Searcher to discuss disposition. I, Dr. Dumont, saw and examined the patient and discussed the management with my PA. I reviewed my PAs note and agree with the documented findings and the plan of care I developed. Discharge Planning DVT Prophylaxis: Jacobo
[2018-03-04 12:22] VITALS: BP 126/84; PULSE 74; TEMP 36.9; O2SAT 98
[2018-03-04 16:00] VITALS: BP 100/68; PULSE 79; TEMP 36.8; O2SAT 93
--- NOTE | 2018-03-04 19:07 | Progress Note ---
Subjective Date of Service: Mar 04, 2018. Subjective Pt evaluation today including: conversation w/ patient, conversation w/ family , physical exam, chart review, lab review, review of studies, conversation w/ telecom sales consultant, review of inpatient medication list Currently sitting in chair, on nasal cannula oxygen, which she does not need it prior to this admission when in rest, she needed oxygen only at nighttime when sleep prior to this admission, he also reports she needs oxygen when she up and walk Review of Systems Constitutional: No fever, No chills, No sweats, No weight loss, No weakness, No fatigue, No problem reported Eyes: No worsening of vision, No eye pain, No redness, No discharge, No diplopia ENT: No hearing loss, No unusual epistaxis, No nasal symptoms, No sore throat, No tinnitus, No dental problems, No trouble swallowing Respiratory: + dyspnea on exertion, No cough, No sputum, No wheezing, No shortness of breath, No dyspnea at rest, No hemoptysis Cardiac: No chest pain, No orthopnea, No PND, No edema, No claudication, No palpitations Abdomen: No pain, No nausea, No vomiting, No diarrhea, No constipation Musculoskeletal: No joint pain, No muscle pain, No swelling, No calf pain Female : No dysuria, No urinary frequency, No hematuria, No incontinence, No abnormal vaginal bleeding, No vaginal discharge Neurologic: No memory loss, No paralysis, No weakness, No numbness/tingling, No vertigo, No balance problems Psychiatric: No depression symptoms, No anhedonism, No anxiety, No insomnia, No substance abuse Heme: No abnormal bleeding/bruising, No clotting problems, No swollen lymph nodes, No night sweats Endo: No fatigue, No excessive thirst, No excessive urination Skin: No rash, No itch, No new/changing skin lesions, No color change, No bleeding Objective Vital Signs Date Time Temp Pulse Resp B/P (MAP) Pulse Ox O2 Delivery O2 Flow Rate FiO2 03/04/18 16:00 36.8 79 18 100/68 (79) 93 Nasal Cannula 2.0 03/04/18 15:35 Room Air 03/04/18 12:22 36.9 74 18 126/84 (98) 98 2.0 03/04/18 07:41 36.9 54 18 119/80 (93) 97 Room Air 03/04/18 07:20 Nasal Cannula 2.0 03/04/18 03:32 36.4 68 16 115/71 (86) 93 CPAP 03/03/18 23:49 CPAP 2.0 03/03/18 22:58 36.7 69 16 106/71 (83) 96 Nasal Cannula 2.0 03/03/18 19:20 36.9 69 16 140/86 (104) 96 Nasal Cannula 2.0 Physical Exam General Appearance: WD/WN, no apparent distress, + obese Eyes: normal inspection, PERRL, EOMI, sclerae normal ENT: normal ENT inspection, hearing grossly normal, pharynx normal Neck: supple, no adenopathy, thyroid normal, no JVD, no carotid bruits, trachea midline Respiratory/Chest: chest non-tender, normal breath sounds, no respiratory distress, no accessory muscle use, + decreased breath sounds Cardiovascular: regular rate, rhythm, no gallop, no JVD, no murmur Abdomen: normal bowel sounds, non tender, soft, no organomegaly, no pulsatile mass Extremities: normal range of motion, non-tender, normal inspection, no pedal edema, no calf tenderness, normal capillary refill, pelvis stable, + swelling ( Trace edema) Neurologic/Psychiatric: member of [place] legislative [place] II-XII nml as tested, no motor/sensory deficits, alert, normal mood/affect, oriented x 3 Skin: normal color, warm/dry, no rash Lymphatic: no adenopathy Laboratory Results Last 24 Hours Test 03/04/18 05:46 03/04/18 08:15 03/04/18 12:18 03/04/18 17:08 White Blood Count 12.51 K/uL Red Blood Count 3.86 M/uL Hemoglobin 11.7 g/dL Hematocrit 36.0 % Mean Corpuscular Volume 93.3 fL Mean Corpuscular Hemoglobin 30.3 pg Mean Corpuscular Hemoglobin Concent 32.5 g/dl RDW Standard Deviation 43.1 fL RDW Coefficient of Variation 12.7 % Platelet Count 263 K/uL Mean Platelet Volume 9.3 fL Sodium Level 138 mmol/L Potassium Level 4.4 mmol/L Chloride Level 105 mmol/L Carbon Dioxide Level 29 mmol/L Anion Gap 4.0 mmol/L Blood Urea Nitrogen 14 mg/dl Creatinine 0.85 mg/dl Est Creatinine Clear Calc Drug Dose 102.7 ml/min Estimated GFR () 88.8 Estimated GFR (Non- 76.6 BUN/Creatinine Ratio 16.0 Random Glucose 121 mg/dl Calcium Level 8.1 mg/dl Hepatitis C Antibody Screen NEG Bedside Glucose 129 mg/dl 106 mg/dl 158 mg/dl Assessment and Plan 58-year-old female with has severe osteoarthritis and failed outpatient conservative management.has had elective left total knee replacement severe osteoarthritis that failed outpatient conservative measures. Postop day 1 of left total knee replacement, stable, this will be management by the primary team COPD without exacerbation Chronic respiratory failure on O2 supplement on exertion and during sleep Obstructive sleep apnea on CPAP machine Diabetes mellitus on oral hypoglycemic, blood glucose well controlled around 100 -150 Plan Continue outpatient medications, encourage incentive spirometry, encourage up and walk and joint PTOT Pain management Physical therapy initiation as per primary orthopedic team DVT prophylaxis as per the choice of primary orthopedic team Sliding scale insulin Continue CPAP machine with sleep Oxygen supplement as needed to keep oxygen saturation between 91-93% Advised patient to follow-up all medical conditions with primary care physician after discharge Continued [facility] stay due to: home environment unsafe for pt Discharge planning: uncertain
[2018-03-04 19:08] VITALS: BP 136/83; PULSE 69; TEMP 37; O2SAT 98
[2018-03-04] MEDS: CeleBREX 200 MG CAP PO SCH (20:23)
[2018-03-04] MEDS: GABAPENTIN 600 MG TAB PO SCH (20:24)
[2018-03-04] MEDS: SENNA 8.6 MG TAB PO SCH (20:25)
[2018-03-04 23:04] VITALS: BP 118/70; PULSE 88; TEMP 36.6; O2SAT 92
[2018-03-05] MEDS: OXYCODONE HCL IR 5 MG TAB (IMMEDIATE RELEASE) PO PRN ×5 (02:02→20:39)
[2018-03-05] MEDS: ACETAMINOPHEN 500 MG TAB PO SCH ×3 (05:59→21:24)
[2018-03-05 06:22] VITALS: BP 114/79; PULSE 68; TEMP 36.6; O2SAT 97
[2018-03-05 06:46] LABS: HEMATOCRIT 31.1 % (37-47); HEMOGLOBIN 10.2 g/dL (12.0-16.0); MEAN CELL VOLUME 92.6 fL (80-100); MEAN CORPUSCULAR HEMOGLOBIN 30.4 pg (25-34); MEAN CORPUSCULAR HGB CONC 32.8 g/dl (32-36); MEAN PLATELET VOLUME 9.4 fL (7.4-10.4); PLATELET COUNT 232 K/uL (130-400); RED CELL DISTRIBUTION WIDTH CV 12.8 % (11.5-14.5); RED CELL DISTRIBUTION WIDTH SD 43.3 fL (36.4-46.3); WHITE BLOOD COUNT 7.86 K/uL (4.8-10.8)
[2018-03-05 07:30] LABS: CALCIUM 8.2 mg/dl (8.5-10.1); CREATININE 0.63 mg/dl (0.60-1.20)
[2018-03-05] MEDS: ENOXAPARIN 30 MG/0.3 ML SYR SQ SCH ×2 (07:39→20:38)
[2018-03-05] MEDS: METFORMIN HCL 500 MG TAB PO SCH ×2 (07:41→18:12)
[2018-03-05] MEDS: BUDESONIDE/FORMOTEROL FUMARATE 160/4.5 60 PUFFS/INHALER INH SCH ×2 (07:41→20:38)
[2018-03-05] MEDS: MULTIVITAMIN TAB PO SCH (07:42)
[2018-03-05] MEDS: ASCORBIC ACID 500 MG TAB PO SCH ×2 (07:42→20:44)
[2018-03-05] MEDS: PANTOprazole SOD 40 MG TAB PO SCH (07:42)
[2018-03-05] MEDS: METHOCARBAMOL 750 MG TAB PO SCH ×3 (07:43→20:37)
[2018-03-05] MEDS: OXYBUTYNIN CHLORIDE 5 MG TAB PO SCH ×2 (07:43→20:37)
[2018-03-05] MEDS: GABAPENTIN 100 MG CAP PO SCH ×2 (07:44→13:51)
[2018-03-05] MEDS: GUAIFENESIN 600 MG TABCR PO SCH ×2 (07:44→20:37)
[2018-03-05] MEDS: DOCUSATE SODIUM 100 MG CAP PO SCH ×2 (07:44→20:37)
[2018-03-05] MEDS: VARENICLINE (CHANTIX) 1 MG TAB PO SCH ×2 (07:45→20:39)
[2018-03-05] MEDS: CeleBREX 200 MG CAP PO SCH ×2 (07:45→20:37)
[2018-03-05 07:47] VITALS: BP 95/62; PULSE 82
[2018-03-05] MEDS: METOPROLOL SUCC 25MG EXT REL TAB PO SCH (07:48)
[2018-03-05] MEDS: INSULIN ASPART 100 UNITS/ML 3 ML PEN SC SCH ×4 (07:53→20:31)
--- NOTE | 2018-03-05 08:48 | Orthopedic Progress Note ---
Orthopedic Progress Note Date of Service Mar 05, 2018. Subjective Post OP Day: 2 Reports: feeling well, pain controlled w PO medications, Denies: chest pain, nausea / vomiting, light headedness, calf pain Additional Notes: Patient complains of slight tingling of her left big toe. Still has weakness of her left foot and unable to dorsiflex. Walked with walker this am without immobilizer. Says she is awaiting authorization for transfer to [facility] but will need portable O2 for transfer. Per patient, her portable O2 is at home and family cannot get today. Nursing did confirm her O2 sats dropped into high 70's and low 80's without O2. Objective calves soft nontender, capillary refill less than 2 sec., dressing C/D/I, incision C/D/I, A&O x3 Altered sensation to left big toe. 4th and 5th chronically altered. Unable to dorsiflex left foot. Weakness to left EHL and TA at 1/5. Knee fully extends and bends to 40 actively. Quad is intact. Date Time Temp Pulse Resp B/P (MAP) Pulse Ox O2 Delivery O2 Flow Rate FiO2 03/05/18 07:47 82 95/62 (73) 03/05/18 07:10 Nasal Cannula 2.0 03/05/18 06:22 36.6 68 17 114/79 (91) 97 Nasal Cannula 2.0 03/04/18 23:40 CPAP 2.0 03/04/18 23:04 36.6 88 17 118/70 (86) 92 CPAP 03/04/18 19:08 37.0 69 16 136/83 (100) 98 Nasal Cannula 2.0 03/04/18 16:00 36.8 79 18 100/68 (79) 93 Nasal Cannula 2.0 03/04/18 15:35 Room Air 03/04/18 12:22 36.9 74 18 126/84 (98) 98 2.0 Laboratory Results 24 Hours: Test 03/05/18 06:27 Hematocrit 31.1 % Hemoglobin 10.2 g/dL Assessment & Plan Assessment: POD # 2, s/p L TKA Plan: Continue to monitor left foot weakness. Will order AFO. Continue pain control. Tolerating diet. Continue PT/OT. WBAT with walker. Dressing changed. DVT Prophylaxis: TEDs & foot pumps, Lovenox 30 mg subq BID x 3 weeks. Then ASA 325 mg PO BID for 3 weeks, then return to patient's regular 81 mg dose. Continue humidified O2. Plan to DC to [facility] once authorized. Patient will also need portable O2 for transfer. I, Dr. Dumont, saw and examined the patient and discussed the management with my PA. I reviewed my PAs note and agree with the documented findings and the plan of care I developed. Not able to be discharged to [facility] and plan for snf facility, if bed available tomorrow. Discharge Planning DVT Prophylaxis: Jacobo
[2018-03-05] MEDS: FERROUS GLUCONATE 324 MG TAB PO SCH ×2 (08:50→18:13)
[2018-03-05 15:10] VITALS: O2SAT 97
[2018-03-05 15:24] VITALS: BP 130/80; PULSE 88; TEMP 37.1; O2SAT 97
--- NOTE | 2018-03-05 15:34 | Progress Note ---
Subjective Date of Service: Mar 05, 2018. Subjective Pt evaluation today including: conversation w/ patient, physical exam, chart review, lab review, review of studies, review of inpatient medication list Doing okay, out of bed to the chair, pain fairly controlled, may have mild dyspnea on exertion, Review of Systems Constitutional: No fever, No chills, No sweats, No weight loss, No weakness, No fatigue, No problem reported Eyes: No worsening of vision, No eye pain, No redness, No discharge, No diplopia ENT: No hearing loss, No unusual epistaxis, No nasal symptoms, No sore throat, No tinnitus, No dental problems, No trouble swallowing Respiratory: No cough, No sputum, No wheezing, No shortness of breath, No dyspnea on exertion, No dyspnea at rest, No hemoptysis Cardiac: No chest pain, No orthopnea, No PND, No edema, No claudication, No palpitations Abdomen: No pain, No nausea, No vomiting, No diarrhea, No constipation Musculoskeletal: No joint pain, No muscle pain, No swelling, No calf pain Female : No dysuria, No urinary frequency, No hematuria, No incontinence, No abnormal vaginal bleeding, No vaginal discharge Neurologic: No memory loss, No paralysis, No weakness, No numbness/tingling, No vertigo, No balance problems Psychiatric: No depression symptoms, No anhedonism, No anxiety, No insomnia, No substance abuse Heme: No abnormal bleeding/bruising, No clotting problems, No swollen lymph nodes, No night sweats Endo: No fatigue, No excessive thirst, No excessive urination Skin: No rash, No itch, No new/changing skin lesions, No color change, No bleeding Objective Vital Signs Date Time Temp Pulse Resp B/P (MAP) Pulse Ox O2 Delivery O2 Flow Rate FiO2 03/05/18 15:24 37.1 88 16 130/80 (97) 97 Nasal Cannula 2.0 03/05/18 07:47 82 95/62 (73) 03/05/18 07:10 Nasal Cannula 2.0 03/05/18 06:22 36.6 68 17 114/79 (91) 97 Nasal Cannula 2.0 03/04/18 23:40 CPAP 2.0 03/04/18 23:04 36.6 88 17 118/70 (86) 92 CPAP 03/04/18 19:08 37.0 69 16 136/83 (100) 98 Nasal Cannula 2.0 03/04/18 16:00 36.8 79 18 100/68 (79) 93 Nasal Cannula 2.0 03/04/18 15:35 Room Air Physical Exam General Appearance: WD/WN, no apparent distress, + obese Eyes: normal inspection, PERRL, EOMI, sclerae normal ENT: normal ENT inspection, hearing grossly normal, pharynx normal Neck: supple, no adenopathy, thyroid normal, no JVD, no carotid bruits, trachea midline Respiratory/Chest: chest non-tender, lungs clear, normal breath sounds, no respiratory distress, no accessory muscle use Cardiovascular: regular rate, rhythm, no edema, no gallop, no JVD, no murmur Abdomen: normal bowel sounds, non tender, soft, no organomegaly, no pulsatile mass Extremities: normal capillary refill, pelvis stable, + pertinent finding (Left knee in dress, bilateral lower extremity no calf pain, no edema, no clubbing no cyanosis) 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, no motor/sensory deficits, alert, normal mood/affect, oriented x 3 Skin: normal color, warm/dry, no rash Lymphatic: no adenopathy Laboratory Results Last 24 Hours Test 03/04/18 17:08 03/04/18 20:33 03/05/18 02:30 03/05/18 06:27 Bedside Glucose 158 mg/dl 97 mg/dl 129 mg/dl White Blood Count 7.86 K/uL Red Blood Count 3.36 M/uL Hemoglobin 10.2 g/dL Hematocrit 31.1 % Mean Corpuscular Volume 92.6 fL Mean Corpuscular Hemoglobin 30.4 pg Mean Corpuscular Hemoglobin Concent 32.8 g/dl RDW Standard Deviation 43.3 fL RDW Coefficient of Variation 12.8 % Platelet Count 232 K/uL Mean Platelet Volume 9.4 fL Sodium Level 134 mmol/L Potassium Level 4.0 mmol/L Chloride Level 104 mmol/L Carbon Dioxide Level 27 mmol/L Anion Gap 3.0 mmol/L Blood Urea Nitrogen 14 mg/dl Creatinine 0.63 mg/dl Est Creatinine Clear Calc Drug Dose 138.6 ml/min Estimated GFR () 116.2 Estimated GFR (Non- 100.3 BUN/Creatinine Ratio 22.1 Random Glucose 111 mg/dl Calcium Level 8.2 mg/dl Test 03/05/18 07:14 03/05/18 12:02 Bedside Glucose 112 mg/dl 102 mg/dl Assessment and Plan 58-year-old female with has severe osteoarthritis and failed outpatient conservative management.has had elective left total knee replacement severe osteoarthritis that failed outpatient conservative measures. Postop day 2 of left total knee replacement, stable, this will be management by the primary team COPD without exacerbation Chronic respiratory failure on O2 supplement on exertion and during sleep Obstructive sleep apnea on CPAP machine Diabetes mellitus on oral hypoglycemic, blood glucose well controlled around 100 -150 Plan Continue outpatient medications, encourage incentive spirometry, encourage up and walk and joint PTOT Continue CPAP machine, Pain management Physical therapy initiation as per primary orthopedic team DVT prophylaxis as per the choice of primary orthopedic team Sliding scale insulin Oxygen supplement as needed to keep oxygen saturation between 91-93%, encourage to check Osat when exertional upon discharge to home from [facility] to justify if the need oxygen when up and walk a daytime when to home Advised patient to follow-up all medical conditions with primary care physician after discharge Continued [facility] stay due to: home environment unsafe for pt Discharge planning: rehab hospital
[2018-03-05] MEDS: SENNA 8.6 MG TAB PO SCH (20:37)
[2018-03-05] MEDS: GABAPENTIN 600 MG TAB PO SCH (20:37)
[2018-03-05 23:05] VITALS: BP 96/58; PULSE 94; TEMP 37.2; O2SAT 91
[2018-03-06] MEDS: OXYCODONE HCL IR 5 MG TAB (IMMEDIATE RELEASE) PO PRN ×3 (00:35→11:32)
[2018-03-06] MEDS: ACETAMINOPHEN 500 MG TAB PO SCH ×2 (06:23→13:44)
[2018-03-06 07:12] LABS: HEMATOCRIT 30.1 % (37-47); MEAN CORPUSCULAR HEMOGLOBIN 30.6 pg (25-34); MEAN CORPUSCULAR HGB CONC 33.2 g/dl (32-36); MEAN PLATELET VOLUME 9.3 fL (7.4-10.4); PLATELET COUNT 245 K/uL (130-400); RED CELL DISTRIBUTION WIDTH CV 12.7 % (11.5-14.5); WHITE BLOOD COUNT 7.14 K/uL (4.8-10.8)
[2018-03-06 07:40] VITALS: BP 110/74; PULSE 74; TEMP 36.7; O2SAT 98
[2018-03-06 07:40] LABS: CALCIUM 8.2 mg/dl (8.5-10.1); CREATININE 0.67 mg/dl (0.60-1.20); POTASSIUM 3.9 mmol/L (3.5-5.1)
[2018-03-06] MEDS: BUDESONIDE/FORMOTEROL FUMARATE 160/4.5 60 PUFFS/INHALER INH SCH (08:22)
[2018-03-06] MEDS: GABAPENTIN 100 MG CAP PO SCH ×2 (08:23→13:43)
[2018-03-06] MEDS: VARENICLINE (CHANTIX) 1 MG TAB PO SCH (08:23)
[2018-03-06] MEDS: DOCUSATE SODIUM 100 MG CAP PO SCH (08:24)
[2018-03-06] MEDS: FERROUS GLUCONATE 324 MG TAB PO SCH (08:24)
[2018-03-06] MEDS: CeleBREX 200 MG CAP PO SCH (08:24)
[2018-03-06] MEDS: OXYBUTYNIN CHLORIDE 5 MG TAB PO SCH (08:25)
[2018-03-06] MEDS: GUAIFENESIN 600 MG TABCR PO SCH (08:26)
[2018-03-06] MEDS: METHOCARBAMOL 750 MG TAB PO SCH ×2 (08:26→13:44)
[2018-03-06] MEDS: PANTOprazole SOD 40 MG TAB PO SCH (08:26)
[2018-03-06] MEDS: MULTIVITAMIN TAB PO SCH (08:27)
[2018-03-06] MEDS: ENOXAPARIN 30 MG/0.3 ML SYR SQ SCH (08:28)
[2018-03-06 08:36] VITALS: BP 121/84; PULSE 72
[2018-03-06] MEDS: METOPROLOL SUCC 25MG EXT REL TAB PO SCH (08:37)
[2018-03-06] MEDS: ASCORBIC ACID 500 MG TAB PO SCH (08:37)
[2018-03-06] MEDS: INSULIN ASPART 100 UNITS/ML 3 ML PEN SC SCH ×2 (08:45→12:00)
--- NOTE | 2018-03-06 08:45 | Orthopedic Progress Note ---
Orthopedic Progress Note Date of Service Mar 06, 2018. Subjective Post OP Day: 3 Reports: feeling well, complaints (Continuation of Left foot drop (inability to dorsiflex)), pain controlled w PO medications, Denies: chest pain, SOB, nausea / vomiting, light headedness, calf pain, using FINANCIAL COMPLIANCE OFFICER Objective calves soft nontender, N/V intact, capillary refill less than 2 sec., dressing C /D/I, incision C/D/I, A&O x3, toes mobile, CMS intact ROM 0-45 degress. Unable to perform SLRT or dorsiflex in Lt foot/LE. No dematomal deficit. Numb/tingling sensation with palpation of distal pad of Lt great toe. Date Time Temp Pulse Resp B/P (MAP) Pulse Ox O2 Delivery O2 Flow Rate FiO2 03/06/18 07:40 36.7 74 16 110/74 (86) 98 Nasal Cannula 1.0 03/06/18 07:15 Nasal Cannula 2.0 03/05/18 23:45 Nasal Cannula 2.0 CPAP 03/05/18 23:05 37.2 94 17 96/58 (71) 91 Room Air 03/05/18 15:24 37.1 88 16 130/80 (97) 97 Nasal Cannula 2.0 03/05/18 15:10 97 Nasal Cannula 2.0 Laboratory Results 24 Hours: Test 03/06/18 06:55 Hematocrit 30.1 % Hemoglobin 10.0 g/dL Assessment & Plan Assessment: POD # 3, s/p L TKA Plan: Continue to monitor left foot weakness. Patient has AFO and daughter is bring her shoes later today. Continue pain control. Tolerating diet. Continue PT/OT. WBAT with walker. Dressing changed. DVT Prophylaxis: TEDs & foot pumps, Lovenox 30 mg subq BID x 3 weeks. Then ASA 325 mg PO BID for 3 weeks, then return to patient's regular 81 mg dose. Continue humidified O2. Plan to DC to [facility] in [place], [place]. Patient will also need portable O2 for transfer. Discharge Planning Discharge Planning: nursing home facility Pain Management: [place] DVT Prophylaxis: TEDs, Lovenox Therapy: Physical Therapy, Occupational Therapy
[2018-03-06] MEDS: METFORMIN HCL 500 MG TAB PO SCH (08:46)
--- NOTE | 2018-03-06 11:13 | Discharge Instructions ---
Discharge Instructions Date of Service Mar 06, 2018. Admission Reason for Admission: Left Knee Osteoarthritis Discharge Discharge Diagnosis / Problem: left knee osteoarthritis Discharge Goals Goal(s): Decrease discomfort, Improve function, Increase independence Activity Recommendations Activity Limitations: as noted below Lifting Limitations: none, gradually increase as tolerated Exercise/Sports Limitations: until after follow-up appointment May Resume Sexual Activity: when tolerated Shower/Bathe: tomorrow, keep incision dry Driving or Machine Use: no driving until cleared Weightbearing Status: Left weightbearing (as tolerated with walker ) . Instructions / Follow-Up Instructions / Follow-Up POST-OP INSTRUCTIONS: The patient will be weight bearing as tolerated with assistive device. Use AFO with ambulation until foot drop as improved. The patient may remove the operative dressing on Post-Op Day #2 and apply Band-Aids to the wounds. The patient may shower in 72 hours and is to wear the LISET for 2 weeks on the operative limb. The patient is to use the pain medicine as needed and follow DVT prophylaxis protocol. Lovenox 30mg SQ BID x 3 wks then 325mg ASA BID x 3wks. The patient was also given a handout for home quad strengthening and seated self assisted ROM exercises, which they may begin. The patient was start at SNF and then DC to home with HHPT. The patient is to follow up with Dr Dumont in 10-14 days as scheduled. Current Hospital Diet Patient's current hospital diet: Diabetes Type 2 Diet Discharge Diet Recommended Diet: Diabetes Type 2 Diet Procedures Procedures Performed: Left Total Knee Arthroplasty Pending Studies Studies pending at discharge: no Medical Emergencies . Who to Call and When: Medical Emergencies: If at any time you feel your situation is an emergency, please call 911 immediately. . Non-Emergent Contact Non-Emergency issues call your: Primary Care Provider Call Non-Emergent contact if: you have a fever, temperature is above 101.5, your pain is not controlled, wound has increased drainage, you have any medication questions . "Provider Documentation" section prepared by Katie Reinoso. . [place] Drug Monitoring Program Search Results: patient reviewed within database, no issues identified, see additional documentation
--- NOTE | 2018-03-06 11:28 | Discharge Summary ---
Orthopedic Discharge Summary Admission Date/Reason Mar 03, 2018 at 12:50 Left Knee Osteoarthritis. Discharge Date/Disposition Mar 06, 2018 [facility] facility Diagnosis Principal Diagnosis: left knee osteoarthritis Procedure(s) Performed left total knee arthroplasty Consultations Medicine Medication Reconciliation See H and P for pre-op medication. Discharged on lovenox 30mg SQ BID x 3 wks and then 325 mg ASA BID x 3 wks. Will be DCd with PO pain meds Per SNF discretion Admission Physical Exam As per Admitting History & Physical. Hospital Course Patient admitted to hospital on 03-03-18 sp left total knee replacement by Dr Dumont. Hospital course uneventful other than post-op foot drop being addressed with an AFO ordered during hospital stay. Could be related to peroneal nerve irritation from surgery or related to pre-existing lumbar disc disease with history of radiculopathy. Patient aware will continue to monitor upon discharge. Patient continues to require O2 as her sats dropped into high 70s and low 80s during activity without. Has portable O2 at home via nasal canula and will be used at SNF. Tolerated PT/OT. Discontinued use of knee immobilizer. Transitioning in room from bed to chair as well as bathroom with walker and A x 1. Pain controlled with PO medication. Swelling controlled in Left LE with LUTHER and ice. Eddie hose to Right LE. Plan to discharge later today to [facility] in [place], [place]. Most likely will need additional 2 wks of HHPT upon SNF DC. Will follow-up in clinic in 10-[address] Dumont for staple removal and assess progress post-op. Discharge Instructions Please refer to the electronic Patient Visit Report (Discharge Instructions) for additional information.
[2018-03-06 12:56] VITALS: BP 121/84; PULSE 72; TEMP 36.7; O2SAT 98
[2018-03-06] MEDS ORDERED: ENOX1INJ8 SQ (13:35)
[2018-03-06] MEDS ORDERED: OXYC-57 PO (13:35)
--- NOTE | 2018-03-06 16:43 | Progress Note ---
Subjective Date of Service: Mar 06, 2018. Subjective Pt evaluation today including: conversation w/ patient, conversation w/ family , physical exam, chart review, lab review, review of studies, review of inpatient medication list Up and walk with his walker, pain well controlled, no complaint Review of Systems Constitutional: + weakness, + fatigue, No fever, No chills, No sweats, No weight loss, No problem reported Eyes: No worsening of vision, No eye pain, No redness, No discharge, No diplopia ENT: No hearing loss, No unusual epistaxis, No nasal symptoms, No sore throat, No tinnitus, No dental problems, No trouble swallowing Respiratory: No cough, No sputum, No wheezing, No shortness of breath, No dyspnea on exertion, No dyspnea at rest, No hemoptysis Cardiac: No chest pain, No orthopnea, No PND, No edema, No claudication, No palpitations Abdomen: No pain, No nausea, No vomiting, No diarrhea, No constipation Musculoskeletal: + joint pain, No muscle pain, No swelling, No calf pain Female : No dysuria, No urinary frequency, No hematuria, No incontinence, No abnormal vaginal bleeding, No vaginal discharge Neurologic: No memory loss, No paralysis, No weakness, No numbness/tingling, No vertigo, No balance problems Psychiatric: No depression symptoms, No anhedonism, No anxiety, No insomnia, No substance abuse Heme: No abnormal bleeding/bruising, No clotting problems, No swollen lymph nodes, No night sweats Endo: No fatigue, No excessive thirst, No excessive urination Skin: No rash, No itch, No new/changing skin lesions, No color change, No bleeding Objective Vital Signs Date Time Temp Pulse Resp B/P (MAP) Pulse Ox O2 Delivery O2 Flow Rate FiO2 03/06/18 12:56 36.7 72 16 98 Room Air 03/06/18 08:36 72 121/84 (96) 03/06/18 07:40 36.7 74 16 110/74 (86) 98 Nasal Cannula 1.0 03/06/18 07:15 Nasal Cannula 2.0 03/05/18 23:45 Nasal Cannula 2.0 CPAP 03/05/18 23:05 37.2 94 17 96/58 (71) 91 Room Air Physical Exam General Appearance: WD/WN, no apparent distress, + obese, + pertinent finding ( Is on nasal cannula oxygen) Eyes: normal inspection, PERRL, EOMI, sclerae normal ENT: normal ENT inspection, hearing grossly normal, pharynx normal Neck: supple, no adenopathy, thyroid normal, no JVD, no carotid bruits, trachea midline Respiratory/Chest: chest non-tender, lungs clear, normal breath sounds, no respiratory distress, no accessory muscle use Cardiovascular: regular rate, rhythm, no edema, no gallop, no JVD, no murmur Abdomen: normal bowel sounds, non tender, soft, no organomegaly, no pulsatile mass Extremities: non-tender, normal inspection, no pedal edema, no calf tenderness , normal capillary refill, pelvis stable, + pertinent finding (Left knee in dress) 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, no motor/sensory deficits, alert, normal mood/affect, oriented x 3 Skin: normal color, warm/dry, no rash Lymphatic: no adenopathy Laboratory Results Last 24 Hours Test 03/05/18 20:26 03/06/18 06:55 03/06/18 08:13 03/06/18 12:18 Bedside Glucose 105 mg/dl 126 mg/dl 109 mg/dl White Blood Count 7.14 K/uL Red Blood Count 3.27 M/uL Hemoglobin 10.0 g/dL Hematocrit 30.1 % Mean Corpuscular Volume 92.0 fL Mean Corpuscular Hemoglobin 30.6 pg Mean Corpuscular Hemoglobin Concent 33.2 g/dl RDW Standard Deviation 43.0 fL RDW Coefficient of Variation 12.7 % Platelet Count 245 K/uL Mean Platelet Volume 9.3 fL Sodium Level 137 mmol/L Potassium Level 3.9 mmol/L Chloride Level 104 mmol/L Carbon Dioxide Level 29 mmol/L Anion Gap 4.0 mmol/L Blood Urea Nitrogen 10 mg/dl Creatinine 0.67 mg/dl Est Creatinine Clear Calc Drug Dose 130.3 ml/min Estimated GFR () 113.9 Estimated GFR (Non- 98.3 BUN/Creatinine Ratio 15.2 Random Glucose 96 mg/dl Calcium Level 8.2 mg/dl Assessment and Plan 58-year-old female with has severe osteoarthritis and failed outpatient conservative management.has had elective left total knee replacement severe osteoarthritis that failed outpatient conservative measures. Postop day 2 of left total knee replacement, stable, this will be management by the primary team COPD without exacerbation, stable Chronic respiratory failure on O2 supplement on exertion and during sleep, staying Obstructive sleep apnea on CPAP machine Diabetes mellitus on oral hypoglycemic, blood glucose well controlled around 100 -150 Plan Again encourage to check Osat when exertional upon discharge to home from half-way facility to justify if the need oxygen when up and walk a daytime when to home Advised patient to follow-up all medical conditions with primary care physician after discharge Patient new to this local area encouraged to find a new PCP she agreed Continued [facility] stay due to: home environment unsafe for pt Discharge planning: half-way facility
== END 2018-03-06 14:28 | DRG 470 ==
LOC: C.ACU 06:23 → C.3E 12:50 → ENRESERV 13:20
PROVIDERS: ADMIT Orthopaedic Surgery Sports Medicine; ATTEND Orthopaedic Surgery Sports Medicine
PROC: 0SRD0J9 Replacement of Left Knee Joint with Synthetic Substitute, Cemented, Open Approach (ICD-10-PCS; principal; 2018-03-03 08:45)
DX: M17.12 Unilateral primary osteoarthritis, left knee (principal); Z68.41 Body mass index [BMI] 40.0-44.9, adult; J96.10 Chronic respiratory failure, unspecified whether with hypoxia or hypercapnia; G47.33 Obstructive sleep apnea (adult) (pediatric); I10 Essential (primary) hypertension; J44.9 Chronic obstructive pulmonary disease, unspecified; E11.9 Type 2 diabetes mellitus without complications; E66.9 Obesity, unspecified; F41.9 Anxiety disorder, unspecified; K21.9 Gastro-esophageal reflux disease without esophagitis; Z88.8 Allergy status to other drugs, medicaments and biological substances; Z79.82 Long term (current) use of aspirin; Z87.891 Personal history of nicotine dependence; Z98.51 Tubal ligation status

== ENCOUNTER → 2018-03-26 | Outpatient (CLI) | payer BC ==
[~2018-03-26] MED LIST changes: -ASPI81TA28 PO; -CEFAZOLIN 3000MG IV PUSH 22.5 ML IV SCH; -CeleBREX 200 MG CAP PO SCH; +ENOX1INJ8 SQ; -GENERAL ORDER PROBLEM SCH; -IBUP-1451 PO; -LACTATED RINGER'S 1000ML IV SCH; +OXYC-57 PO; -ROPIVACAINE 5MG/ML 30 ML 150 MG, BUPIVACAINE/EPINEPHR 0.5% MPF 30 ML, KETOROLAC TROMETH... INFIL SCH
[2018-03-26 18:09] LABS: BLOOD UREA NITROGEN 16 mg/dl (7-18); CALCIUM 9.3 mg/dl (8.5-10.1); CARBON DIOXIDE 28 mmol/L (21-32); CREATININE 0.95 mg/dl (0.60-1.20); GLUCOSE 134 mg/dl (70-99); POTASSIUM 3.9 mmol/L (3.5-5.1); SODIUM 136 mmol/L (136-145)
== END | disposition home or self-care (01) ==
LOC: C.LABMFLN 16:15
PROVIDERS: ATTEND Psychiatry & Neurology Child & Adolescent Psychiatry
DX: I10 Essential (primary) hypertension (principal)

== ENCOUNTER → 2018-05-28 | Outpatient (CLI) | payer BC | END | disposition home or self-care (01) | LOC: C.RDSM 08:09 | PROVIDERS: ATTEND Orthopaedic Surgery Sports Medicine | DX: Z96.652 Presence of left artificial knee joint (principal) ==